=== PATIENT | female | born 1955 | race Caucasian/White ===

== ENCOUNTER → 2017-07-08 | Outpatient (CLI) | payer OTHER ==
[2017-07-08 13:07] LABS: BASO % 0.3 %; BASO ABS # 0.03 K/uL (0-0.2); EOS % 0.2 %; EOS ABS # 0.02 K/uL (0-0.5); HEMATOCRIT 36.4 % (37-47); HEMOGLOBIN 12.5 g/dL (12.0-16.0); IG# 0.02 K/uL (0.00-0.02); LYMPH % 33.5 %; LYMPH ABS # 3.42 K/uL (1.2-3.4); MEAN CELL VOLUME 84.8 fL (80-100); MEAN CORPUSCULAR HEMOGLOBIN 29.1 pg (25-34); MEAN CORPUSCULAR HGB CONC 34.3 g/dl (32-36); MEAN PLATELET VOLUME 10.9 fL (7.4-10.4); MONO % 5.3 %; MONO ABS # 0.54 K/uL (0.11-0.59); NEUT % 60.5 %; NEUT ABS # 6.17 K/uL (1.4-6.5); PLATELET COUNT 327 K/uL (130-400); RED CELL DISTRIBUTION WIDTH CV 13.2 % (11.5-14.5); RED CELL DISTRIBUTION WIDTH SD 40.2 fL (36.4-46.3)
[2017-07-08 14:47] LABS: ALBUMIN 4.1 gm/dl (3.4-5.0); ALT/SGPT 32 U/L (12-78); AST/SGOT 31 U/L (15-37); BLOOD UREA NITROGEN 9 mg/dl (7-18); CALCIUM 9.3 mg/dl (8.5-10.1); CARBON DIOXIDE 25 mmol/L (21-32); CREATININE 0.68 mg/dl (0.60-1.20); GLUCOSE 109 mg/dl (70-99); POTASSIUM 3.5 mmol/L (3.5-5.1); SODIUM 135 mmol/L (136-145)
[2017-07-08 14:50] LABS: ALKALINE PHOSPHATASE 129 U/L (45-117); TOTAL PROTEIN 7.6 gm/dl (6.4-8.2)
== END | disposition home or self-care (01) ==
LOC: C.LABBC 12:01
PROVIDERS: ATTEND Physician Assistant Medical
DX: N64.9 Disorder of breast, unspecified (principal)

== ENCOUNTER → 2017-07-09 | Outpatient (CLI) | payer OTHER ==
[~2017-07-09] MED LIST: HYDR-5688 PO; SILV1CRE73 TOP
--- NOTE | 2017-07-09 15:05 | MAMMOGRAPHY REPORT ---
BILATERAL DIGITAL DIAGNOSTIC MAMMOGRAM TOMOSYNTHESIS AND TARGETED LEFT ULTRASOUND: 07/09/2017 CLINICAL HISTORY: The patient presents with changes of her left breast including an open wound in her left breast as well as a palpable left axillary lump. TECHNIQUE: Breast tomosynthesis in addition to standard 2D mammography was performed. Bilateral CC and MLO 2D and tomosynthesis images were obtained. COMPARISON: Chest CT performed earlier today. BREAST COMPOSITION: There are scattered areas of fibroglandular density in both breasts. FINDINGS: Mammograms of the left breast demonstrate deformation of the left breast with skin dimpling and skin thickening. Additionally, there are numerous spiculated masses seen mammographically, incl uding a spiculated 2.5 cm mass with overlying skin ulceration seen within the left upper outer quadra nt, a spiculated mass measuring at least 10 mm in the left subareolar region, and a spiculated mass m easuring at least 14 x 12 mm in the left lower inner quadrant. Additionally, there is a partially vi sualized spiculated mass in the left axillary region which measures at least 2.4 cm. Mammograms of th e right breast demonstrate no suspicious masses, calcifications, or areas of architectural distortion . Targeted ultrasound was performed of the area of the left breast masses seen mammographically. In th e left 7:00 breast, 3 cm from the nipple, there is an irregular hypoechoic spiculated mass which nora ures at least 7 x 8 millimeters. Another hypoechoic irregular mass is seen within the left subareola r breast which measures 9 x 6 mm. Another spiculated irregular hypoechoic 4 x 7 x 8 mm mass is seen within the left 5:00 periareolar breast. Another irregular hypoechoic mass is seen underlying the ar ea of skin ulceration in the left upper outer quadrant at approximately 2:00, 4 cm from the nipple. The mass is difficult to visualize as it is difficult to make good skin contact with the transducer d ue to the overlying ulceration, however, the mass measures approximately 2.1 x 2.1 cm. The mass is be st visualized and therefore measurements are most accurate on recent chest CT. Skin thickening and i rregularity is seen overlying the masses. The masses are highly suspicious for malignancy and are co mpatible with multicentric disease. In the left axilla, there is an irregular spiculated hypoechoic mass which measures 2.1 x 2.3 x 2.4 c m, highly suspicious for a fredrick metastasis. IMPRESSION: ACR BI-RADS CATEGORY 5: HIGHLY SUGGESTIVE OF MALIGNANCY, TARGETED ULTRASOUND ACR BI-RADS CATEGORY 5: HIGHLY SUGGESTIVE OF MALIGNANCY 1. Numerous spiculated irregular masses within the left breast, with overlying skin changes includin g thickening, dimpling, and ulceration. The dominant mass measures at least 2.5 cm in the left 2:00 breast, with overlying skin ulceration noted. Findings are highly suspicious for multicentric malign hanna. Recommend ultrasound-guided core needle biopsy of one of the masses to confirm malignancy. 2. Irregular hypoechoic 2.4 cm mass in the left axilla, suspicious for fredrick metastasis. Recommend ultrasound-guided core needle biopsy for further evaluation. 3. No mammographic evidence of malignancy in the right breast. A phone call was made to the physician's office to confirm faxed results were received. The patient has been verbally notified of the results. The biopsies are tentatively scheduled for next Wednesday . Approximately 10% of breast cancers are not detected with mammography. A negative mammographic report should not delay biopsy if a clinically suggestive mass is present. Sonja Dorado M.D. ah/:07/09/2017 14:45:53 Resaw Operator: Danae FLORES)([place]), [facility] letter sent: Abnormal 4/5 BI-RADS Code: ACR BI-RADS Category 5: Highly Suggestive Of Malignancy Ultrasound BI-RADS: ACR BI-RAD S Category 5: Highly Suggestive Of Malignancy
== END | disposition home or self-care (01) ==
LOC: C.MAMM 13:43
PROVIDERS: ATTEND Physician Assistant Medical
DX: R92.8 Other abnormal and inconclusive findings on diagnostic imaging of breast (principal); N63.20 Unspecified lump in the left breast, unspecified quadrant

== ENCOUNTER → 2017-07-09 | Outpatient (CLI) | payer OTHER ==
[~2017-07-09] MED LIST changes: +OPTIRAY 320 IV PRN
--- NOTE | 2017-07-09 09:07 | DIAGNOSTIC IMAGING REPORT ---
CT (CHEST) THORAX WITH CT DOSE: 235.19 mGy.cm HISTORY: Breast lesion N64.9 Breast vyfiootmgS19.9 Lesion of skin of [id number] TECHNIQUE: Multiaxial CT images of the chest were performed following the intravenous administration of contrast. A dose lowering technique was utilized adhering to the principles of ALARA. COMPARISON: None. FINDINGS: Several lesions in the left breast. Skin thickening lateral aspect left breast. At the 9:00 position is an irregular mass measuring 2.3 x 2.9 cm medially deep to the skin surface. This shows a linear extension to the left lateral chest wall. No definite invasion to the inner chest wall is present although there is linear extension to the outer muscular layer of the intercostal musculature. In addition, there is an 8 mm nodular density in the subareolar aspect of left breast. An additional 9 mm lesion is identified at 12:00 position of the left breast is a 4 mm nodule at the 2:00 position the left breast. There is a 6 mm subcutaneous nodule at the 7:00 position. An irregular left axillary node measures 2.5 cm. Margins are irregular.] Shows no dominant mass. Several small nonspecific Nodes are present measuring 2 6 mm. Patient is status post thyroidectomy. No significant mediastinal or hilar adenopathy. Lung parenchyma shows several small nonspecific nodules measuring from 2 to 4 mm within the right upper lobe as well as superior segment right lower lobe. Limited evaluation of the upper abdomen shows the presence of a right renal cyst. No significant superior upper abdominal adenopathy is present. IMPRESSION: 1. Multifocal irregular nodules and/or masses of the left breast. 2. Dominant subcutaneous mass with associated skin retraction is identified at the 9:00 position of the left breast with linear extension to the outer margin of the left chest wall. 3. Irregular enlarged high left axillary node measuring 2.5 cm. 4. This appearance is consistent with multifocal neoplasm of the left breast with extension to the left axillary fredrick complex. 5. No significant abnormality of the right breast within limitations of CT scanning. 6. Several small micronodules of the right and to a lesser extent left lung too Small to characterize. These should be followed closely for potential metastatic change. The above report was generated using voice recognition software. It may contain grammatical, syntax or spelling errors. Electronically signed by: Nic Lebron M.D. 07/09/2017 9:06 AM Dictated Date/Time: 07/09/2017 8:55 AM
== END | disposition home or self-care (01) ==
LOC: C.CTS 08:28
PROVIDERS: ATTEND Physician Assistant Medical
DX: N64.9 Disorder of breast, unspecified (principal)

== ENCOUNTER → 2017-07-14 | Outpatient (CLI) | payer OTHER ==
--- NOTE | 2017-07-14 14:26 | Discharge Instructions ---
Discharge Instructions Procedure Procedure Date: Jul 14, 2017. Reason for visit: Left Mass/Left Axillary Node. Discharge Discharge Date: Jul 14, 2017. Discharge Diagnosis: post left breast and axillary ultrasound guided core biopsy Instructions Activity Recommendations: Additional Limitations (see below) Return to School/Work: no limitations Recommended Home Diet: No Limitations Provider Instructions: ACTIVITY RECOMMENDATIONS: * No lifting, pushing, pulling or exercising the affected side for three days. RETURN TO SCHOOL/WORK: * You may return to work/school after the procedure, but do not perform any strenuous activities for 24 to 48 hours. MEDICATIONS: * Tylenol (two 325 mg) every four to six hours if needed for mild pain (if not allergic to Tylenol). DIET: * Resume previous diet. SPECIAL CARE INSTRUCTIONS: * Keep biopsy site dry for 24 hours. May shower after 24 hours, but do not soak (bathe) incision. * May remove Tegaderm (plastic patch) tomorrow AFTER showering. * Leave the steri-strips on for one week. Allow the steri-strips to fall off by themselves. If not off after one week, you may remove them. You may place a Bandaid crosswise over the strips, if desired. * Apply ice 10 minutes on and 10 minutes off as needed. * Wear a bra at bedtime to sleep more comfortably for 2-3 days. * Your referring physician should have the results after approximately 5 to 7 business days. * Call for unusual bleeding, fever, drainage, etc or if you have any questions call [phone] during normal business hours or after hours call Dr Vila, . FOLLOW UP VISIT: Follow-up with Referring Physician as scheduled. Bar [place] Recommendations: Call your doctor if: * Temperature above 101 degrees * Pain not relieved by pain medicine ordered * There is increased drainage or redness from any incision * You have any unanswered questions or concerns. Your Doctors Instructions noted above were prepared by provider Dawn Vila. Patient Signature Section: Patient Instructions Signature Page Carissa Penaloza Patient (or Guardian) Signature/Date: I have read and understand the instructions given to me by my caregivers. Caregiver/RN/Doctor Signature/Date: The above-named patient and/or guardian has received patient instructions on this date. + Original Patient Signature Page (only) stays with chart. Please make copy for patient.
--- NOTE | 2017-07-14 15:23 | MAMMOGRAPHY REPORT ---
UNILATERAL LEFT DIGITAL DIAGNOSTIC MAMMOGRAM TOMOSYNTHESIS: 07/14/2017 CLINICAL HISTORY: Status post ultrasound-guided core biopsy of a suspicious spiculated mass ulceratin g through the skin of the 2:00 left breast, and a suspicious spiculated mass in the left axilla perla rning for metastatic disease. Please refer to the report from left breast ultrasound-guided core biopsy performed at the same time for full detail. IMPRESSION: POST PROCEDURE IMAGING FOR MARKER PLACEMENT Please refer to the report from left breast ultrasound-guided core biopsy performed at the same time for full detail. Approximately 10% of breast cancers are not detected with mammography. A negative mammographic report should not delay biopsy if a clinically suggestive mass is present. Dawn Vila M.D. ay/:07/14/2017 14:25:30 Customer Operations Manager: Christie LE(R)(M), [facility] BI-RADS Code: Post Procedure Imaging For Marker Placement
--- NOTE | 2017-07-15 14:44 | MAMMOGRAPHY REPORT ---
ULTRASOUND GUIDED BIOPSY LEFT BREAST: 07/14/2017 CLINICAL HISTORY: Suspicious spiculated hypoechoic fungating and ulcerating mass in the 2:00 left alejandrina ast. Patient presents for ultrasound-guided core biopsy. COMPARISON: Comparison is made to exams dated: 07/09/2017 mammogram and 07/14/2017 ultrasound biopsy - [facility]. PATIENT CONSENT: The procedure, risks and benefits were discussed with the patient and informed conse nt was obtained both verbally and in writing. Specific risks to this procedure include: bleeding, in fection, puncture of adjacent structure, nontarget biopsy, sampling error, pain, metal allergy and me dication reaction. PROCEDURE DESCRIPTION: A time out was performed and the left breast was agreed as the site of biopsy. The skin was prepped and draped in the usual sterile fashion. The suspicious spiculated ulcerating m ass in the 2:00 left breast was chosen as the target for biopsy. Subcutaneous and intraparenchymal 1% buffered lidocaine, with and without epinephrine, was administered as local anesthesia. A skin incis ion was made. Through the incision, 3 samples were taken with a 14 gauge Achieve biopsy device. A ri bbon shaped metallic marker was placed at the biopsy site. Hemostasis was achieved after manual compr ession. The patient tolerated the procedure well and there was no immediate complication. The sample s were sent to the pathology department in an appropriately labeled container. Postprocedure left CC, exaggerated lateral CC and ML views were obtained. There is a new ribbon-shap ed biopsy marker clip within a spiculated mass in the 2:00 middle one third of the left breast. No s ignificant postbiopsy hematoma. An orb-shaped biopsy marker clip is seen within the left axillary ma ss. IMPRESSION: ULTRASOUND GUIDED BIOPSY Status post ultrasound-guided core biopsy of a suspicious spiculated left 2:00 breast mass, and spicu lated mass in the left axilla concerning for metastatic disease. The patient will receive notification of the pathology results from her referring physician. Dawn Vila M.D. ay/:07/14/2017 15:44:10 Senior Counsel: Christie FLORES)([place]), [facility]
--- NOTE | 2017-07-15 14:44 | MAMMOGRAPHY REPORT ---
ULTRASOUND GUIDED BIOPSY LEFT BREAST: 07/14/2017 CLINICAL HISTORY: Suspicious spiculated mass in the left axilla. Patient presents for ultrasound-salvador ded core biopsy of this suspected metastatic lymph node. COMPARISON: Comparison is made to exam dated: 07/09/2017 mammogram - [facility]. PATIENT CONSENT: The procedure, risks and benefits were discussed with the patient and informed conse nt was obtained both verbally and in writing. Specific risks to this procedure include: bleeding, in fection, puncture of adjacent structure, nontarget biopsy, sampling error, pain, metal allergy and me dication reaction. PROCEDURE DESCRIPTION: A time out was performed and the left axilla was agreed as the site of biopsy. The skin was prepped and draped in the usual sterile fashion. The spiculated hypoechoic shadowing ma ss in the left axilla was chosen as the target for biopsy. Subcutaneous and intraparenchymal 1% buffe red lidocaine, with and without epinephrine, was administered as local anesthesia. A skin incision wa s made. Through the incision, 3 samples were taken with a 14 gauge Achieve biopsy device. An orb-sha ped metallic marker was placed at the biopsy site. Hemostasis was achieved after manual compression. The patient tolerated the procedure well and there was no immediate complication. The samples were s ent to the pathology department in an appropriately labeled container. Postprocedure left CC, exaggerated lateral CC and ML views were obtained. The metallic biopsy marker clip is seen within a spiculated left axillary mass. No significant postbiopsy hematoma identified. IMPRESSION: ULTRASOUND GUIDED BIOPSY Status post ultrasound-guided core biopsy of a suspicious spiculated left axillary mass, with biopsy marker placed at the site. The patient will receive notification of the pathology results from her referring physician. Dawn Vila M.D. ay/:07/14/2017 15:41:44 Tow Driver: Christie FLORES)([place]), [facility]
== END | disposition home or self-care (01) ==
LOC: C.MAMM 13:36
PROVIDERS: ATTEND Physician Assistant Medical
DX: N63.20 Unspecified lump in the left breast, unspecified quadrant (principal); E04.1 Nontoxic single thyroid nodule; D05.92 Unspecified type of carcinoma in situ of left breast

== ENCOUNTER → 2017-07-19 | Outpatient (CLI) | payer OTHER ==
[~2017-07-19] MED LIST changes: -OPTIRAY 320 IV PRN
--- NOTE | 2017-07-19 14:11 | DIAGNOSTIC IMAGING REPORT ---
PET/CT SKULL-THIGH CLINICAL HISTORY: 61 years-old Female with BREAST CANCER. Initial treatment strategy. Malignant neoplasm of nipple and area of the, left female breast COMPARISON: Chest CT 07/09/2017, ultrasound of the left breast 07/09/2017 TECHNIQUE: The patient was injected with 10.2 mCi of F-18 fluorodeoxyglucose (FDG) and an emission scan was performed from the skull vertex to the toes. Noncontrast CT was performed for attenuation correction and anatomic localization. The blood glucose level was 102 mg/dl. FINDINGS: HEAD AND NECK: There is a physiologic distribution of activity, with no hypermetabolic foci. CHEST: Increased FDG activity within the musculature about the right shoulder is noted without correlate focal abnormality on the CT images, SUV max of 3.5 seen on image 61 of series 267. Additionally, there is increased metabolic activity in the region of the right chest wall posteriorly near the shoulder without correlate on the CT images, possibly related to recent muscle activity. There is a focal mass of the lateral left breast with adjacent biopsy clip overall measuring up to 2.0 x 1.9 cm, image 89 series 2 with associated skin thickening and dimpling with architectural distortion. The mass appears to abut the chest wall and is hypermetabolic, SUV max of 6.7. There are multiple additional smaller areas of hypermetabolic activity about the left retroareolar and periareolar left breast, medial and lateral quadrants including a 7 mm nodular lesion on image 94 series 2 which demonstrates SUV max of 3.3. Hypermetabolic activity within a linear distribution is noted within the retroareolar tissues including a 2.0 cm linear focus seen on image 91 series 2 which may reflect neoplastic ductal activity. There is a large left axillary lymph node with adjacent biopsy clip measuring 2.7 x 2.1 cm on image 68 series 2 which also demonstrates skin retraction with hypermetabolic activity, SUV max of 6.7. 6 mm hypermetabolic left axillary lymph node on image 58 series 2 demonstrates SUV max of 2.8 compatible with additional site of metastatic disease. No hypermetabolic pulmonary nodules or mediastinal adenopathy. ABDOMEN AND PELVIS: There is a physiologic distribution of activity within the liver, spleen, adrenal glands, gastrointestinal and urinary tracts, with no hypermetabolic foci. MUSCULOSKELETAL SYSTEM AND EXTREMITIES: There is a physiologic distribution of activity within the bone marrow, with no hypermetabolic foci. ADDITIONAL CT FINDINGS: Postsurgical changes within the distribution of the thyroid. 4 mm perifissural lymph node seen on image 86 series 2. Indeterminate 4 mm nodule within the right upper lobe, image 76 series 2. Mild biapical pleural-parenchymal scarring. Mild dependent subsegmental bibasilar atelectasis. 2.7 cm low attenuating lesion of the posterior interpolar right kidney suggests renal cyst. Phleboliths of the pelvis. Mild colonic diverticulosis without diverticulitis. Normal appendix. No suspicious lytic or blastic bony lesions. IMPRESSION: 1. Previously biopsied irregular soft tissue attenuating mass of the lateral breast with associated skin thickening and skin dimpling extends towards the chest wall measuring up to 2.0 cm is markedly hypermetabolic compatible with breast carcinoma. Additionally, there are multiple additional smaller hypermetabolic lesions about the retroareolar and medial left breast as above compatible with multicentric disease. 2. Metastatic left axillary adenopathy. 3. Increased metabolic activity about the right shoulder without correlate on the CT images is likely related to recent activity or inflammatory etiology. 4. No additional evidence of metastatic disease. The above report was generated using voice recognition software. It may contain grammatical, syntax or spelling errors. Electronically signed by: Ron Petit M.D. 07/19/2017 2:10 PM Dictated Date/Time: 07/19/2017 1:50 PM
== END | disposition home or self-care (01) ==
LOC: C.PET 09:44
PROVIDERS: ATTEND Internal Medicine Hematology & Oncology
DX: C50.012 Malignant neoplasm of nipple and areola, left female breast (principal); R59.0 Localized enlarged lymph nodes

== ENCOUNTER → 2017-07-21 | Day surgery (SDC) | payer OTHER ==
[2017-07-20 16:04] VITALS: BMI 23.0
[~2017-07-21] VITALS: Ht 163.8 cm; Wt 62.3 kg
[~2017-07-21] MED LIST changes: +ATROPINE SULFATE 0.1 MG/ML 5ML SYR IV PRN; +CEFAZOLIN 2000MG IV PUSH 15 ML IV SCH; +CEFAZOLIN SOD 1 GM VIAL ONE; +CONRAY 60% 50 ML VIAL FLUSH ONE; +EpHEDrine SULFATE INJ 50 MG/ML AMP IV PRN; +FENTANYL CITRATE INJ 50 MCG/1 ML 2 ML VIAL IV PRN; +FENTANYL CITRATE INJ 50 MCG/1 ML 2 ML VIAL ONE; +FLUMAZENIL 0.1 MG/1 ML 10 ML VIAL IV PRN; +HEPARIN SOD (PORCINE) 1000 UNIT/ML 10 ML VIAL ONE; +HYDROCODONE/ACETAMIN 5/325MG TAB PO PRN; +HYDROmorphone INJ 0.5 MG/0.5 ML SYR IV PRN; +LABETALOL HCL IV 5 MG/ML 20ML IV PRN; +LACTATED RINGER'S 1000ML 1,000 ML IV SCH; +LIDOCAINE HCL 1% 20 ML VIAL ONE; +LIDOCAINE HCL 2% 2 ML VIAL (20MG/ML) ONE; +MEPERIDINE HCL 25 MG/ML CARP IV PRN; +MIDAZOLAM HCL 1 MG/ML 2ML VIAL ONE; +NALOXONE HCL 0.4 MG/1 ML VIAL/CARP IV PRN; +ONDANSETRON INJ 2 MG/ML 2 ML VIAL IV PRN; +PHENYLEPHRINE 100MCG/ML 5ML SYR IV PRN; +PROPOFOL IV EMULSION 10 MG/ML 20 ML VIAL IV ONE; +THROMBIN FOR SOLN 20000 UNIT KIT ONE
[2017-07-21 07:48] VITALS: BP 138/71; PULSE 82; TEMP 36.8; O2SAT 97; Ht 163.8 cm; Wt 62.3 kg
--- NOTE | 2017-07-21 08:38 | History & Physical Bridge Note ---
H&P Re-Evaluation Bridge Note: I have examined the patient, reviewed the History & Physical and in the interval since the performance of the History & Physical I have noted the following changes of clinical significance: No changes noted
--- NOTE | 2017-07-21 09:47 | [facility] Operative Report ---
Operative Report Operative Date Jul 21, 2017. Pre-Operative Diagnosis Infiltrating ductal carcinoma of left breast Post-Operative Diagnosis same Procedure(s) Performed port Surgeon Dr. Meade Community Relations Assistant Surgeon(s) none Estimated Blood Loss 5cc Findings placed via Rt subclavian vein Specimens none per surgeon Drains None Anesthesia Type MAC Complication(s) none Disposition Recovery Room / PACU I attest to the content of the Intraoperative Record and any orders documented therein. Any exceptions are noted below.
--- NOTE | 2017-07-21 09:52 | Discharge Instructions ---
Discharge Instructions Date of Service Jul 21, 2017. Visit Reason for Visit: Left Breast Cancer Discharge Discharge Diagnosis / Problem: breast cancer Discharge Goals Goal(s): Decrease discomfort, Improve function, Improve disease control Activity Recommendations Activity Limitations: as noted below Lifting Limitations: gradually increase as tolerated Exercise/Sports Limitations: until after follow-up appointment May Resume Sexual Activity: when tolerated Shower/Bathe: tomorrow Driving or Machine Use: resume 1 day after discharge Anesthesia . Post Anesthesia Instructions: If you have had General Anesthesia or IV Sedation: * Do not drive today. * Resume driving when surgeon permits. * Do not make important decisions or sign legal documents today. * Call surgeon for: 1. Temperature elevations greater than 101 degrees F. 2. Uncontrollable pain. 3. Excessive bleeding. 4. Persistent nausea and vomiting. 5. Medication intolerance (nausea, vomiting or rash). * For nausea and vomiting use only clear liquids such as: tea, soda, bouillon until nausea subsides, then gradually increase diet as tolerated. * If you have any concerns or questions, call your surgeon's office. If physician is unavailable and it is an emergency, call 911 or go to the nearest emergency room. . Instructions / Follow-Up Instructions / Follow-Up SPECIAL CARE INSTRUCTIONS: * Cover incisions and change daily for comfort/drainage. * May use ibuprofen for pain as tolerated. and / or plain Tylenol * Expect some swelling and bruising. Call your doctor if: * Temperature above 101 degrees * Pain not relieved by pain medicine ordered * There is increased drainage or redness from any incision * You have any unanswered questions or concerns [phone]. FOLLOW UP VISIT: If not already scheduled, please call the office for a follow-up visit. for 2 weeks- suture removal OFFICE PHONE NUMBER: Dr. Meade Office Diet Recommendations Recommended Home Diet: resume previous diet Procedures Procedures Performed: port Pending Studies Studies pending at discharge: no Medical Emergencies . Who to Call and When: Medical Emergencies: If at any time you feel your situation is an emergency, please call 911 immediately. . Non-Emergent Contact Non-Emergency issues call your: Primary Care Provider, Surgeon . . "Provider Documentation" section prepared by Channing Meade. .
--- NOTE | 2017-07-21 10:04 | Anesthesiology Progress Note ---
Anesthesia Post Op Note Date & Time Jul 21, 2017 at 10:04 Vital Signs Pain Intensity: 1 Vital Signs Past 12 Hours Date Time Temp Pulse Resp B/P (MAP) Pulse Ox O2 Delivery O2 Flow Rate FiO2 07/21/17 07:48 36.8 82 16 138/71 (93) 97 Room Air Notes Mental Status: alert / awake / arousable, participated in evaluation Pt Amnestic to Procedure: Yes Nausea / Vomiting: adequately controlled Pain: adequately controlled Airway Patency, RR, SpO2: stable & adequate BP & HR: stable & adequate Hydration State: stable & adequate Anesthetic Complications: no major complications apparent The patient is awake and stable in PACU.
--- NOTE | 2017-07-21 10:27 | DIAGNOSTIC IMAGING REPORT ---
SINGLE VIEW CHEST CLINICAL HISTORY: Status post infusion port placement. FINDINGS: An AP, portable, upright chest radiograph is correlated with chest CT dated 07/09/2017. The examination is degraded by portable technique and patient rotation. A right subclavian central venous infusion port has been placed. The tip of the catheter projects over the SVC. The cardiomediastinal silhouette is unremarkable. The lungs and pleural spaces are clear. No pneumothorax is seen. The bony thorax is grossly intact. Surgical clips project over the lower neck. IMPRESSION: 1. No active disease in the chest. 2. A right subclavian central venous infusion port has been placed as above. No pneumothorax is identified post procedure. Electronically signed by: Maycol Martins M.D. 07/21/2017 10:25 AM Dictated Date/Time: 07/21/2017 10:24 AM
[2017-07-21 10:30] VITALS: BP 124/70; PULSE 74; TEMP 36.5; O2SAT 98
--- NOTE | 2017-07-21 10:30 | OPERATIVE REPORT ---
DATE OF OPERATION: 07/21/2017 NAME OF OPERATION: Access port placement. PREOPERATIVE DIAGNOSIS: Breast cancer. POSTOPERATIVE DIAGNOSIS: Breast cancer. STAFF SURGEON: Channing Meade MD ANESTHESIA: 1% plain lidocaine with sedation. DESCRIPTION OF PROCEDURE: The patient was brought in the operating room and placed on the operating table in supine position. Her chest was prepped and draped in usual fashion. The right side was approached, skin and subcutaneous tissue of the right deltopectoral groove were anesthetized. An incision was made carrying dissection down identifying the cephalic vein. I was unable to pass the catheter or the wire into the subclavian vein. Therefore, I injected some contrast and marked the subclavian vein and placed the patient in Trendelenburg position. Using a puncture technique, I localized the right subclavian vein, passed a wire under fluoroscopy. Then, the dilator and introducer were passed over the wire. The dilator and wire were removed. The catheter was passed through the introducer, positioned appropriately in the superior vena cava. It was then aspirated and flushed with heparinized solution. A pocket was fashioned in the chest wall. The port was attached to the catheter, placed into the pocket, and secured to the chest wall using 3-0 Prolene suture. The port was aspirated and flushed with heparinized solution. The site was irrigated with antibiotic solution. Then the subcutaneous tissue was reapproximated using 2-0 chromic suture. Skin was reapproximated using 4-0 nylon suture. A dressing was applied and patient was transferred to recovery room in stable condition. I attest to the content of the Intraoperative Record and any orders documented therein. Any exception s are noted below.
[2017-07-21 11:00] VITALS: BP 114/76; PULSE 56; TEMP 36.5; O2SAT 99
== END | disposition home or self-care (01) ==
LOC: C.ACU 07:13
PROVIDERS: ATTEND Surgery
DX: C50.912 Malignant neoplasm of unspecified site of left female breast (principal); Z90.89 Acquired absence of other organs; Z87.891 Personal history of nicotine dependence

== ENCOUNTER → 2017-07-28 | Outpatient (CLI) | payer OTHER ==
[~2017-07-28] MED LIST changes: -ATROPINE SULFATE 0.1 MG/ML 5ML SYR IV PRN; -CEFAZOLIN 2000MG IV PUSH 15 ML IV SCH; -CEFAZOLIN SOD 1 GM VIAL ONE; -CONRAY 60% 50 ML VIAL FLUSH ONE; -EpHEDrine SULFATE INJ 50 MG/ML AMP IV PRN; -FENTANYL CITRATE INJ 50 MCG/1 ML 2 ML VIAL IV PRN; -FENTANYL CITRATE INJ 50 MCG/1 ML 2 ML VIAL ONE; -FLUMAZENIL 0.1 MG/1 ML 10 ML VIAL IV PRN; -HEPARIN SOD (PORCINE) 1000 UNIT/ML 10 ML VIAL ONE; -HYDROCODONE/ACETAMIN 5/325MG TAB PO PRN; -HYDROmorphone INJ 0.5 MG/0.5 ML SYR IV PRN; -LABETALOL HCL IV 5 MG/ML 20ML IV PRN; -LACTATED RINGER'S 1000ML 1,000 ML IV SCH; -LIDOCAINE HCL 1% 20 ML VIAL ONE; -LIDOCAINE HCL 2% 2 ML VIAL (20MG/ML) ONE; -MEPERIDINE HCL 25 MG/ML CARP IV PRN; -MIDAZOLAM HCL 1 MG/ML 2ML VIAL ONE; -NALOXONE HCL 0.4 MG/1 ML VIAL/CARP IV PRN; -ONDANSETRON INJ 2 MG/ML 2 ML VIAL IV PRN; -PHENYLEPHRINE 100MCG/ML 5ML SYR IV PRN; -PROPOFOL IV EMULSION 10 MG/ML 20 ML VIAL IV ONE; -THROMBIN FOR SOLN 20000 UNIT KIT ONE
--- NOTE | 2017-07-28 14:26 | ECHOCARDIOGRAM REPORT ---
*NOTICE TO RECEIVING CONSTITUTION PARTY AGENCY This information is strictly Confidential and protected under [place] law. [place] law prohibits you from making any further disclosure of this information unless further disclosure is expressly permitted by the written consent of the person to whom it pertains or is authorized by law. A general authorization for the release of medical or other information is not sufficient for this purpose. Hospital accepts no responsibility if the information is made available to any other person, INCLUDING THE PATIENT. Interpretation Summary * Name: LUZMA COX Study Date: 07/28/2017 12:47 PM BP: 142/68 mmHg * Patient Location: [facility] HR: 87 * : 1955 (M/d/yyyy) Gender: Female Height: 64 in * Age: 61 yrs Ethnicity: CA Weight: 137 lb * Ordering Physician: Cecily Canela * Referring Physician: Mitch Stone D.O. * Performed By: Shaggy Bright RCS * * Reason For Study: Neaoplasm * BSA: 1.7 m2 * -- Conclusions -- * 1. Normal LV size. Normal LV wall thickness. * 2. Normal LV systolic function. LVEF 60-65%. No regional wall motion abnormalities. * 3. Normal RV size and function. * 4. No significant valvular pathology. * 5. Normal estimated pulmonary pressure. * 6. Average global longitudinal strain normal (-23.4%) * 7. No prior studies for comparison. Procedure Details * A complete two-dimensional transthoracic echocardiogram was performed (2D, M-mode, Doppler and color flow Doppler). Left Ventricle * The left ventricle is grossly normal size. * There is normal left ventricular wall thickness. * Ejection Fraction = 60-65%. * No regional wall motion abnormalities noted. Right Ventricle * The right ventricle is grossly normal size. * The right ventricular systolic function is normal as assessed by tricuspid annular plane systolic excursion (TAPSE) (normal >1.5 cm). Atria * Borderline left atrial enlargement. * Right atrial size is normal. * No ASD detected; PFO is not assessed. Mitral Valve * The mitral valve is grossly normal. * There is no mitral valve stenosis. * There is trace mitral regurgitation. Tricuspid Valve * There is trace tricuspid regurgitation. Aortic Valve * The aortic valve opens well. * The aortic valve is trileaflet. * No hemodynamically significant valvular aortic stenosis. * There is no significant aortic regurgitation. Pulmonic Valve * The pulmonary valve is inadequately visualized, but the Doppler data is adequate for interpretation. * Pulmonic stenosis is absent. * There is no significant pulmonary regurgitation. Great Vessels * The aortic root and proximal ascending aorta are normal sized. Pericardium/Pleural * There is no pericardial effusion. Great Vessels * IVC greater than 2.1 cm, greater than 50% change with respiration. Estimated RA 8 mmHg. MMode 2D Measurements and Calculations IVSd 0.91 cm IVSs 1.2 cm LVIDd 4.0 cm LVIDs 2.6 cm LVPWd 0.78 cm LVPWs 1.2 cm IVS/LVPW 1.2 FS 33.2 % EDV(Teich) 68.1 ml ESV(Teich) 25.6 ml EF(Teich) 62.4 % EDV(cubed) 61.8 ml ESV(cubed) 18.4 ml EF(cubed) 70.2 % % IVS thick 26.9 % % LVPW thick 54.0 % LV mass(C)d 99.0 grams LV mass(C)dI 59.5 grams/m\S\2 LV mass(C)s 89.4 grams LV mass(C)sI 53.7 grams/m\S\2 SV(Teich) 42.5 ml SI(Teich) 25.5 ml/m\S\2 SV(cubed) 43.4 ml SI(cubed) 26.0 ml/m\S\2 Ao root diam 3.1 cm Ao root area 7.5 cm\S\2 ACS 1.7 cm LA dimension 3.3 cm asc Aorta Diam 2.4 cm LA/Ao 1.1 EDV(MOD-sp4) 70.0 ml ESV(MOD-sp4) 23.0 ml EF(MOD-sp4) 67.1 % EDV(MOD-sp2) 91.0 ml ESV(MOD-sp2) 37.0 ml EF(MOD-sp2) 59.3 % SV(MOD-sp4) 47.0 ml SI(MOD-sp4) 28.2 ml/m\S\2 SV(MOD-sp2) 54.0 ml SI(MOD-sp2) 32.4 ml/m\S\2 Doppler Measurements and Calculations MV E max karli 67.1 cm/sec MV A max karli 54.2 cm/sec MV E/A 1.2 MV P1/2t max karli 72.8 cm/sec MV P1/2t 67.0 msec MVA(P1/2t) 3.3 cm\S\2 MV dec slope 318.0 cm/sec\S\2 MV dec time 0.22 sec Ao V2 max 127.5 cm/sec Ao max PG 6.5 mmHg Ao max PG (full) -0.31 mmHg LV V1 max PG 6.8 mmHg LV V1 max 130.5 cm/sec PA V2 max 114.6 cm/sec PA max PG 5.3 mmHg TR max karli 173.7 cm/sec
== END | disposition home or self-care (01) ==
LOC: C.CPL 12:31
PROVIDERS: ATTEND Internal Medicine Hematology & Oncology
DX: C50.012 Malignant neoplasm of nipple and areola, left female breast (principal)

== ENCOUNTER → 2017-11-11 | Outpatient (CLI) | payer OTHER ==
[2017-11-11 09:48] LABS: BASO % 0.3 %; BASO ABS # 0.05 K/uL (0-0.2); EOS % 0.1 %; EOS ABS # 0.01 K/uL (0-0.5); HEMATOCRIT 34.5 % (37-47); HEMOGLOBIN 11.1 g/dL (12.0-16.0); IG# 0.11 K/uL (0.00-0.02); LYMPH % 5.3 %; LYMPH ABS # 0.87 K/uL (1.2-3.4); MEAN CELL VOLUME 90.6 fL (80-100); MEAN CORPUSCULAR HEMOGLOBIN 29.1 pg (25-34); MEAN CORPUSCULAR HGB CONC 32.2 g/dl (32-36); MEAN PLATELET VOLUME 10.6 fL (7.4-10.4); MONO % 1.8 %; NEUT % 91.8 %; NEUT ABS # 15.03 K/uL (1.4-6.5); PLATELET COUNT 378 K/uL (130-400); RED CELL DISTRIBUTION WIDTH CV 16.6 % (11.5-14.5); RED CELL DISTRIBUTION WIDTH SD 55.5 fL (36.4-46.3); WHITE BLOOD COUNT 16.37 K/uL (4.8-10.8)
[2017-11-11 10:11] LABS: ALBUMIN 3.2 gm/dl (3.4-5.0); ALKALINE PHOSPHATASE 117 U/L (45-117); ALT/SGPT 27 U/L (12-78); AST/SGOT 28 U/L (15-37); BLOOD UREA NITROGEN 8 mg/dl (7-18); CALCIUM 8.7 mg/dl (8.5-10.1); CARBON DIOXIDE 24 mmol/L (21-32); CREATININE 0.57 mg/dl (0.60-1.20); GLUCOSE 127 mg/dl (70-99); POTASSIUM 3.7 mmol/L (3.5-5.1); SODIUM 137 mmol/L (136-145); TOTAL PROTEIN 6.4 gm/dl (6.4-8.2)
== END | disposition home or self-care (01) ==
LOC: C.LABSPEC 09:28
PROVIDERS: ATTEND Internal Medicine Hematology & Oncology
DX: C50.012 Malignant neoplasm of nipple and areola, left female breast (principal)